=== PATIENT | female | born 1970 | race Caucasian/White ===

== ENCOUNTER 2018-05-22 17:18 | Emergency (ER) | payer OTHER ==
[~2018-05-22] VITALS: Ht 172.7 cm; Wt 90.7 kg
[~2018-05-22 17:18] MED LIST: CIPRO500 MG PO; PHENAZOPYRIDIN200 M2 PO
[2018-05-22] MEDS ORDERED: SYNTHROID200 MCG PO (17:31)
[2018-05-22 17:34] LABS: URINE BILIRUBIN NEGATIVE (Negative); URINE BLOOD TRACE (Negative); URINE CLARITY CLEAR; URINE COLOR YELLOW; URINE GLUCOSE-RANDOM NEGATIVE (Negative); URINE KETONES NEGATIVE (Negative); URINE LEUKOCYTES-REFLEX NEGATIVE (Negative); URINE NITRITE-REFLEX NEGATIVE (Negative); URINE PROTEIN NEGATIVE (Negative); URINE SPECIFIC GRAVITY <= 1.005 (1.005-1.030); URINE UROBILINOGEN 0.2 E.U./dl (0.2-1.0)
[2018-05-22 17:42] LABS: AMP/METHAMP Negative (Negative); BARBITURATES Negative (Negative); BENZODIAZEPINES Negative (Negative); COCAINE Negative (Negative); METHADONE Negative (Negative); OPIATES Negative (Negative); PCP Negative (Negative); THC Negative (Negative)
[2018-05-22 17:43] LABS: ABSOLUTE BASOPHILS 0.1 thou/uL (0.0-0.2); ABSOLUTE EOSINOPHILS 0.1 thou/uL (0.0-0.7); ABSOLUTE LYMPHOCYTES 1.7 thou/uL (0.8-5.3); ABSOLUTE MONOCYTES 0.3 thou/uL (0.0-1.2); ABSOLUTE NEUTROPHILS 1.3 thou/uL (1.6-8.1); BASOPHILS 1.7 %; EOSINOPHILS 2.9 %; HEMATOCRIT 35.8 % (37.0-47.0); HEMOGLOBIN 12.7 gm/dL (12.0-15.0); MCH 35.8 pg (26.0-34.0); MCHC 35.5 g/dL (28.0-37.0); MCV 101.1 fL (80.0-100.0); MONOCYTES 8.5 %; MPV 7.6 fl. (7.2-11.1); NUCLEATED RBCS 0 /100WBC; PLATELET COUNT* 131 thou/uL (150-400); POLYS 37.9 %; RBC 3.54 mil/uL (4.20-5.00); RDW-CV 13.5 % (10.5-14.5); WBC 3.4 thou/uL (4.0-11.0)
[2018-05-22 17:50] LABS: CALCIUM 7.9 mg/dL (8.5-10.1); CREATININE 0.6 mg/dL (0.6-1.3)
[2018-05-22 17:51] LABS: POTASSIUM 2.9 mmol/L (3.5-5.1)
[2018-05-22 17:55] LABS: ALBUMIN 3.2 g/dL (3.4-5.0); TOTAL BILIRUBIN 1.5 mg/dL (<0.1-1.0); TOTAL PROTEIN 6.6 g/dL (6.4-8.2)
[2018-05-22 18:00] LABS: ALCOHOL 348 mg/dL (<10)
[2018-05-22 18:07] LABS: ACETAMINOPHEN < 2 ug/mL (10-30); SALICYLATE < 2.8 mg/dL (2.8-20.0)
[2018-05-22] MEDS ORDERED: POTASSIUM20 PO (18:17)
[2018-05-22 18:50] VITALS: BP 132/79
--- NOTE | 2018-05-23 13:37 | EKG ---
[place] [address] ELECTROCARDIOGRAM REPORT Name: SAMIRA MAI Room: [facility]#: [id number] Admission: 05/22/18 Attend Phys: Discharge: 05/22/18 Date of : 72 Report #: [id number] THIS REPORT FOR: //name// [facility] ED Test Date: 2018-05-22 Test Time: 17:45:13 Pat Name: SAMIRA MAI Department: Room: Gender: F [employer]: : [id number] Requested By: Melany Kiran Order Number: [id number] MD: Richard Reed Measurements Intervals [place] Rate: 85 P: 43 GA: 164 QRS: 44 QRSD: 102 T: 56 QT: 381 QTc: 453 Interpretive Statements Sinus rhythm No previous ECG available for comparison Electronically Signed On 05-23-2018 13:36:54 CDT by Richard Reed [email or web address] <ELECTRONICALLY SIGNED> By: Richard Reed MD, [facility] 05/23/18 [id number] 1745 Richard Reed MD, FACC /EPI
== END 2018-05-22 18:51 | disposition home or self-care (01) ==
LOC: M.ERS 17:18
PROVIDERS: Nurse Practitioner Family
DX: F10.129 Alcohol abuse with intoxication, unspecified (principal); Y90.8 Blood alcohol level of 240 mg/100 ml or more; E87.6 Hypokalemia; E03.9 Hypothyroidism, unspecified; F17.210 Nicotine dependence, cigarettes, uncomplicated; Z88.0 Allergy status to penicillin

== ENCOUNTER → 2020-07-03 | Outpatient (CLI) | payer OTHER ==
[~2020-07-03] MED LIST changes: +POTASSIUM20 PO; +SYNTHROID200 MCG PO
== END ==
LOC: M.RAD 07:50
PROVIDERS: ATTEND Internal Medicine
DX: R91.8 Other nonspecific abnormal finding of lung field (principal); M47.814 Spondylosis without myelopathy or radiculopathy, thoracic region

== ENCOUNTER → 2021-01-26 | Outpatient (CLI) | payer OTHER | LOC: M.ULTRA 14:39 → M.RAD 14:39 | PROVIDERS: ATTEND Internal Medicine | DX: S92.901A Unspecified fracture of right foot, initial encounter for closed fracture (principal); M79.671 Pain in right foot; M85.871 Other specified disorders of bone density and structure, right ankle and foot; X58.XXXA Exposure to other specified factors, initial encounter; Y93.89 Activity, other specified; Y92.89 Other specified places as the place of occurrence of the external cause; Y99.8 Other external cause status ==

== ENCOUNTER 2021-12-09 18:09 | Emergency (ER) | payer OTHER ==
[~2021-12-09] VITALS: Ht 172.7 cm; Wt 77.1 kg
[2021-12-09 19:13] LABS: URINE BILIRUBIN NEGATIVE (Negative); URINE BLOOD TRACE (Negative); URINE CLARITY CLEAR; URINE COLOR YELLOW; URINE GLUCOSE-RANDOM NEGATIVE (Negative); URINE KETONES NEGATIVE (Negative); URINE LEUKOCYTES-REFLEX NEGATIVE (Negative); URINE NITRITE-REFLEX NEGATIVE (Negative); URINE PROTEIN NEGATIVE (Negative); URINE SPECIFIC GRAVITY <= 1.005 (1.005-1.030); URINE UROBILINOGEN 0.2 E.U./dl (0.2-1.0)
[2021-12-09 19:14] LABS: ABSOLUTE BASOPHILS 0.1 thou/uL (0.0-0.2); ABSOLUTE EOSINOPHILS 0.1 thou/uL (0.0-0.7); ABSOLUTE MONOCYTES 0.2 thou/uL (0.0-1.2); ABSOLUTE NEUTROPHILS 3.2 thou/uL (1.6-8.1); BASOPHILS 1.2 %; EOSINOPHILS 0.9 %; HEMATOCRIT 37.1 % (37.0-47.0); HEMOGLOBIN 12.6 gm/dL (12.0-15.0); LYMPHOCYTES 46.2 %; MCHC 34.1 g/dL (28.0-37.0); MCV 111.6 fL (80.0-100.0); MONOCYTES 2.9 %; MPV 6.9 fl. (7.2-11.1); NUCLEATED RBCS 0 /100WBC; PLATELET COUNT* 317 thou/uL (150-400); POLYS 48.8 %; RBC 3.33 mil/uL (4.20-5.00); RDW-CV 19.2 % (10.5-14.5); WBC 6.5 thou/uL (4.0-11.0)
[2021-12-09 19:23] LABS: CALCIUM 8.7 mg/dL (8.5-10.1); CREATININE 0.8 mg/dL (0.6-1.3); POTASSIUM 3.3 mmol/L (3.5-5.1)
[2021-12-09 19:28] LABS: TOTAL BILIRUBIN 1.8 mg/dL (<0.1-1.0); TOTAL PROTEIN 8.2 g/dL (6.4-8.2)
[2021-12-09] MEDS ORDERED: FOLTX TABLET1 EAC1 PO (19:58)
[2021-12-09 20:00] VITALS: BP 133/82
[2021-12-09 22:00] LABS: PLATELET ESTIMATE ADEQUATE
[2021-12-09 22:01] LABS: ANISOCYTOSIS 1+; MACROCYTES 2+
== END 2021-12-09 20:00 | disposition home or self-care (01) ==
LOC: M.ERS 18:09
PROVIDERS: Physician Assistant Medical
DX: F10.220 Alcohol dependence with intoxication, uncomplicated (principal); R51.9 Headache, unspecified; R11.0 Nausea; E03.9 Hypothyroidism, unspecified; F17.210 Nicotine dependence, cigarettes, uncomplicated; Z79.899 Other long term (current) drug therapy; Z88.0 Allergy status to penicillin